=== PATIENT | female | born 1990 | race Caucasian/White ===

== ENCOUNTER 2016-12-01 22:31 | Emergency (ER) | payer OTHER ==
[2016-12-01 23:04] LABS: RBC URINE < 1 /hpf (0-3); URINE BILIRUBIN NEGATIVE (NEGATIVE); URINE BLOOD NEGATIVE (NEGATIVE); URINE COLOR Yellow (YELLOW); URINE GLUCOSE (UA) NORMAL (Normal); URINE KETONE NEGATIVE (NEGATIVE); URINE LEUKOCYTE ESTERASE NEG Leu/uL (Negative); URINE PROTEIN NEGATIVE (NEGATIVE); URINE UROBILINOGEN NORMAL mg/dL (0.2-1.0); WBC URINE 1 /hpf (0-5)
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
[2016-12-02] MEDS ORDERED: cefTRIAXone (Rocephin) 250 mg Inj IM STA (00:45)
[2016-12-02] MEDS ORDERED: Emtricitabine-Tenofovir 200 mg-300 mg Tab PO NR (00:45)
[2016-12-02] MEDS ORDERED: Emtricitabine-Tenofovir 200 mg-300 mg Tab PO STA (00:45)
[2016-12-02 00:51] VITALS: BP 116/77; PULSE 63; RESP 18; TEMP 98
[2016-12-02 01:11] VITALS: O2SAT 97
== END 2016-12-02 01:44 | disposition home or self-care (01) ==
LOC: C.ER 22:31
DX: T76.21XA Adult sexual abuse, suspected, initial encounter (principal)
CPT/HCPCS: 81001; 84703; 86592; 86703; 86706; 87491; 87591; 96372; 99285; J0696

== ENCOUNTER 2016-12-09 19:01 | Emergency (ER) | payer OTHER ==
[2016-12-09 19:19] VITALS: BP 126/93; PULSE 97; RESP 16; TEMP 98.1; O2SAT 99
[2016-12-09 20:11] LABS: RBC URINE < 1 /hpf (0-3); URINE BILIRUBIN NEGATIVE (NEGATIVE); URINE BLOOD NEGATIVE (NEGATIVE); URINE COLOR Yellow (YELLOW); URINE GLUCOSE (UA) NORMAL (Normal); URINE KETONE NEGATIVE (NEGATIVE); URINE LEUKOCYTE ESTERASE NEG Leu/uL (Negative); URINE PROTEIN NEGATIVE (NEGATIVE); URINE UROBILINOGEN NORMAL mg/dL (0.2-1.0); WBC URINE < 1 /hpf (0-5)
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
== END 2016-12-09 22:55 | disposition home or self-care (01) ==
LOC: C.ER 19:01
DX: Z04.41 Encounter for examination and observation following alleged adult rape (principal)